=== PATIENT | female | born 1945 | race Caucasian/White ===

== ENCOUNTER 2025-06-26 13:54 | Emergency (ER) | payer MEDICARE ==
[~2025-06-26] VITALS: Ht 157.5 cm; Wt 54.4 kg
[2025-06-26 14:07] VITALS: TEMP 98.3
[2025-06-26 14:46] LABS: PLATELET COUNT (AUTO) 199 K/uL (150-450); RED BLOOD CELL COUNT(AUTO) 5.06 MIL/uL (4.0-5.2); RED CELL DISTRIBUTION WIDTH 13.7 % (11.5-15.0); WHITE BLOOD COUNT (AUTO) 4.6 K/uL (4.3-11.0)
[2025-06-26 14:59] LABS: CALCIUM, SERUM 8.8 mg/dL (8.5-10.1); CREATININE 0.8 mg/dL (0.6-1.3); SODIUM SERUM 139.0 mmol/L (136-145); UREA NITROGEN, BLOOD 19.0 mg/dL (7-18)
[2025-06-26] MEDS ORDERED: MINERAL OIL 133 ML (PYXIS) 1 EA ENEMA RC ONE (15:00)
[2025-06-26] MEDS ORDERED: POLYETHYLENE GLYCOL 3350 17 GM POWD.PACK ONE (15:00)
[2025-06-26] MEDS: POLYETHYLENE GLYCOL 3350 17 GM POWD.PACK PO ONE (15:05)
[2025-06-26] MEDS: MINERAL OIL 133 ML (PYXIS) 1 EA ENEMA RC ONE (15:30)
[2025-06-26 16:01] VITALS: BP 142/81
[2025-06-26] MEDS ORDERED: POLY119P PO (16:04)
[2025-06-26 16:45] VITALS: O2SAT 96
== END 2025-06-26 16:46 | disposition home or self-care (01) ==
LOC: ER 14:10
DX: K59.00 Constipation, unspecified (principal); Z88.0 Allergy status to penicillin; Z88.2 Allergy status to sulfonamides; Z98.51 Tubal ligation status
CPT/HCPCS: 36415; 74021; 80048-TC; 83690-TC; 85025-TC